=== PATIENT | female | born 1960 | race Caucasian/White ===

== ENCOUNTER → 2019-12-20 | Outpatient (CLI) | payer OTHER ==
--- NOTE | 2019-12-20 14:30 | RAD ---
2 view study lumbar spine Clinical indications: Back pain. Disability determination. FINDINGS: Transitional vertebra is apparent and will be labeled as S1 for the sake of consistency. No compression fracture or discitis or lytic process or anterolisthesis is evident. Degenerative facet arthropathy is seen from L3-4 down through L5-S1. There is mild degenerative disc space narrowing and endplate spurring throughout the lumbar spine. Moderate degenerative disc space narrowing and endplate spurring is seen at L5-S1. No spina bifida or scoliosis is seen. IMPRESSION: Mild degenerative lumbar spondylosis. No acute compression fracture. Electronically signed by: Dino Morales MD (12/20/2019 2:27 PM) [id number]
== END ==
LOC: RAD 11:08 → EDBD 11:08
PROVIDERS: ATTEND Anesthesiology Pain Medicine
DX: M47.816 Spondylosis without myelopathy or radiculopathy, lumbar region (principal); M48.07 Spinal stenosis, lumbosacral region
CPT/HCPCS: 72100